=== PATIENT | female | born 1980 | race Caucasian/White ===

== ENCOUNTER 2020-07-11 08:50 | Observation (INO) | payer OTHER ==
[~2020-07-11] VITALS: Ht 167 cm; Wt 85.3 kg
[2020-07-11 11:25] VITALS: BP 102/63
[2020-07-11] MEDS ORDERED: PNV1TABL89 PO (11:28)
== END 2020-07-11 10:35 | disposition home or self-care (01) ==
LOC: 4S 08:50
PROVIDERS: ADMIT Obstetrics & Gynecology Obstetrics; ATTEND Obstetrics & Gynecology Obstetrics
DX: O09.513 Supervision of elderly primigravida, third trimester (principal); Z3A.37 37 weeks gestation of pregnancy
CPT/HCPCS: 59025; 76811; 99219

== ENCOUNTER 2020-07-14 12:20 | Observation (INO) | payer OTHER ==
[~2020-07-14] VITALS: Ht 182.9 cm; Wt 86.2 kg
[~2020-07-14 12:20] MED LIST: PNV1TABL89 PO
[2020-07-14 12:45] VITALS: BP 117/61
== END 2020-07-14 14:20 | disposition home or self-care (01) ==
LOC: 4S 12:20
PROVIDERS: ADMIT Obstetrics & Gynecology Obstetrics; ATTEND Obstetrics & Gynecology Obstetrics
DX: O62.9 Abnormality of forces of labor, unspecified (principal); Z3A.38 38 weeks gestation of pregnancy
CPT/HCPCS: 59025; 99219

== ENCOUNTER 2020-07-19 20:40 | Inpatient (IN) | payer OTHER ==
[~2020-07-19] VITALS: Ht 165.1 cm; Wt 89.8 kg
[2020-07-19] MEDS ORDERED: OXYTOCIN 30 UNITS/LACT RINGERS 500 ML IV ONE (21:11)
[2020-07-19] MEDS ORDERED: RINGERS SOLUTION,LACTATED 1,000 ML IV ONE (21:11)
[2020-07-19] MEDS ORDERED: METOCLOPRAMIDE HCL 5 MG/ML 2 ML VIAL IVP PRN (21:15)
[2020-07-19] MEDS ORDERED: CITRIC ACID/SODIUM CITRATE 30 ML SOLUTION UDCUP PO PRN (21:15)
[2020-07-19] MEDS ORDERED: LIDOCAINE/PF 1% 30 ML VIAL INJ PRN (21:15)
[2020-07-19 21:35] VITALS: BP 112/76
[2020-07-19 22:02] LABS: BASOPHILS % (AUTO) 0.3 % (0.0-2.0); EOSINOPHILS % (AUTO) 1.5 % (1.0-6.0); HEMATOCRIT 37.9 % (36-46); HEMOGLOBIN 12.4 g/dL (12.0-16.0); LYMPHOCYTES # (AUTO) 2.5 K/uL (1.0-4.8); LYMPHOCYTES % (AUTO) 21.8 % (22.0-44.0); MEAN CORPUSCULAR HEMOGLOBIN 28.7 pg (26.0-34.0); MEAN CORPUSCULAR HGB CONC 32.6 G/dL (31.0-37.0); MEAN CORPUSCULAR VOLUME 88 fL (80-100); MONOCYTES # (AUTO) 0.5 K/uL (0.1-1.0); MONOCYTES % (AUTO) 4.4 % (2.0-9.0); NEUTROPHILS # (AUTO) 8.4 K/uL (1.8-7.7); PLATELET COUNT (AUTO)-OB 208 K/uL (150-450); RED BLOOD CELL COUNT(AUTO) 4.31 MIL/uL (4.00-5.20); RED CELL DISTRIBUTION WIDTH 15.1 % (11.5-14.5)
[2020-07-19] MEDS: RINGERS SOLUTION,LACTATED 1,000 ML IV SCH (22:03)
[2020-07-20] MEDS ORDERED: OXYTOCIN 30 UNITS/LACT RINGERS 500 ML IV PRN
[2020-07-20] MEDS: RINGERS SOLUTION,LACTATED 1,000 ML IV SCH ×2 (01:23→10:17)
[2020-07-20 05:02] LABS: COVID AG,FIA SOURCE NASOPHARYNGEAL
[2020-07-20] MEDS ORDERED: ROPIVACAINE HCL/PF 0.2% 100 ML ED ONE (08:58)
[2020-07-20] MEDS ORDERED: ROPIVACAINE HCL/PF 0.2% 100 ML ED PRN (09:25)
[2020-07-20] MEDS ORDERED: ONDANSETRON HCL 4 MG/2 ML VIAL IVP PRN (09:30)
[2020-07-20] MEDS ORDERED: DiphenhydrAMINE HCL 50 MG/ML VIAL IVP PRN (09:30)
[2020-07-20] MEDS ORDERED: NALBUPHINE HCL 10 MG/ML VIAL IVP PRN (09:30)
[2020-07-20] MEDS ORDERED: OXYTOCIN 30 UNITS/LACT RINGERS 500 ML IV ONE (15:01)
[2020-07-20] MEDS ORDERED: GLYCERIN/WITCH HAZEL LEAF 40 PADS JAR TP PRN (15:15)
[2020-07-20] MEDS ORDERED: MAGNESIUM HYDROXIDE SUSPENSION 30 ML UDCUP PO PRN (15:15)
[2020-07-20] MEDS ORDERED: LIDOCAINE/PF 1% 30 ML VIAL INJ PRN (15:15)
[2020-07-20] MEDS ORDERED: OxyCODONE HCL/ACETAMINOPHEN 5-325 MG TABLET PO PRN ×2 (15:15)
[2020-07-20] MEDS ORDERED: LANOLIN 7 GM OINTMENT TP PRN (15:15)
[2020-07-20] MEDS ORDERED: BENZOCAINE 20%/MENTHOL 56 GM SPRAY CANISTER TP PRN (15:15)
[2020-07-20] MEDS: IBUPROFEN 800 MG TABLET PO PRN (18:58)
[2020-07-20] MEDS ORDERED: INFLUENZA VIRUS VACCINE QVS 2020-21 (6MO+)/PF 60 MCG/0.5 ML SYRINGE IM ONE (20:15)
[2020-07-21 06:47] LABS: BASOPHILS % (AUTO) 0.2 % (0.0-2.0); HEMATOCRIT 28.7 % (36-46); HEMOGLOBIN 9.5 g/dL (12.0-16.0); LYMPHOCYTES # (AUTO) 2.6 K/uL (1.0-4.8); LYMPHOCYTES % (AUTO) 22.3 % (22.0-44.0); MEAN CORPUSCULAR HEMOGLOBIN 29.1 pg (26.0-34.0); MEAN CORPUSCULAR HGB CONC 33.2 G/dL (31.0-37.0); MEAN CORPUSCULAR VOLUME 88 fL (80-100); MONOCYTES # (AUTO) 0.5 K/uL (0.1-1.0); MONOCYTES % (AUTO) 4.7 % (2.0-9.0); NEUTROPHILS # (AUTO) 8.4 K/uL (1.8-7.7); NEUTROPHILS % (AUTO) 71.8 % (40.0-70.0); PLATELET COUNT (AUTO)-OB 169 K/uL (150-450); RED BLOOD CELL COUNT(AUTO) 3.27 MIL/uL (4.00-5.20); RED CELL DISTRIBUTION WIDTH 15.2 % (11.5-14.5)
[2020-07-21] MEDS: IBUPROFEN 800 MG TABLET PO PRN (10:34)
[2020-07-21] MEDS ORDERED: IBUP-2071 PO (13:42)
== END 2020-07-21 15:15 | disposition home or self-care (01) | DRG 807 ==
LOC: 4S 20:40 → OBSVTOIN 20:40
PROVIDERS: ADMIT Obstetrics & Gynecology Obstetrics; ATTEND Obstetrics & Gynecology Obstetrics
PROC: 10D07Z6 Extraction of Products of Conception, Vacuum, Via Natural or Artificial Opening (ICD-10-PCS; principal; 2020-07-20)
PROC: 0KQM0ZZ Repair Perineum Muscle, Open Approach (ICD-10-PCS; 2020-07-20)
PROC: 10907ZC Drainage of Amniotic Fluid, Therapeutic from Products of Conception, Via Natural or Artificial Opening (ICD-10-PCS; 2020-07-20)
PROC: 3E033VJ Introduction of Other Hormone into Peripheral Vein, Percutaneous Approach (ICD-10-PCS; 2020-07-20)
PROC: 3E0R3BZ Introduction of Anesthetic Agent into Spinal Canal, Percutaneous Approach (ICD-10-PCS; 2020-07-20)
PROC: 00HU33Z Insertion of Infusion Device into Spinal Canal, Percutaneous Approach (ICD-10-PCS; 2020-07-20)
DX: O76 Abnormality in fetal heart rate and rhythm complicating labor and delivery (principal); Z37.0 Single live birth; O70.1 Second degree perineal laceration during delivery; Z3A.39 39 weeks gestation of pregnancy
CPT/HCPCS: 86850; 86900; 86901; 87426; 90686; J2590; J2795; J7120